=== PATIENT | male | born 1955 | race Caucasian/White ===

== ENCOUNTER 2023-01-19 10:11 | Day surgery (SDC) | payer MEDICARE, OTHER ==
[~2023-01-19] VITALS: Ht 167.6 cm; Wt 96.1 kg
[~2023-01-19 10:11] MED LIST: ASPI325 PO; ATOR40TA PO; FEXPSEER PO; IBUP100S; JUBLIA4 ML; LOSARTAN POTASS25 MG PO; META800 PO; Mobic15 MG PO; OMEG1CAP30
[2023-01-19] MEDS ORDERED: VITAMIN D33000 UNIT PO (10:36)
--- NOTE | 2023-01-19 12:24 | NUR ---
01/19/23 1224 Chuyita Henry IV D/C'D WITH CATH TIP INTACT. SITE WNL. GAUZE AND ACEWRAP INTACT.
[2023-01-19 12:32] VITALS: BP 106/73
== END 2023-01-19 12:32 | disposition home or self-care (01) ==
LOC: ORSCSDS 10:11
PROVIDERS: Internal Medicine Gastroenterology
PROC: 0DJD8ZZ Inspection of Lower Intestinal Tract, Via Natural or Artificial Opening Endoscopic (ICD-10-PCS; principal; 2023-01-19 11:30)
DX: Z12.11 Encounter for screening for malignant neoplasm of colon (principal); Z86.010 Personal history of colon polyps; K64.8 Other hemorrhoids; K57.30 Diverticulosis of large intestine without perforation or abscess without bleeding; Z79.82 Long term (current) use of aspirin; Z79.899 Other long term (current) drug therapy
CPT/HCPCS: J2704; J7120